=== PATIENT | female | born 1945 | race Caucasian/White ===

== ENCOUNTER 2021-09-22 17:28 | Emergency (ER) | payer MEDICARE, MEDICAID ==
[~2021-09-22] VITALS: Ht 167.6 cm; Wt 76.4 kg
[2021-09-22 17:48] VITALS: BP 181/63
== END 2021-09-22 19:12 | disposition home or self-care (01) ==
LOC: ER 17:28
DX: M25.522 Pain in left elbow (principal); Z53.21 Procedure and treatment not carried out due to patient leaving prior to being seen by health care provider

== ENCOUNTER 2022-07-10 11:50 | Day surgery (SDC) | payer MEDICARE, MEDICAID ==
[~2022-07-10] VITALS: Ht 167.6 cm; Wt 82.6 kg
[2022-07-10] MEDS ORDERED: WARF2.5T82 (12:25)
[2022-07-10] MEDS ORDERED: HYDR-3964 PO (12:25)
[2022-07-10] MEDS ORDERED: AMIO200T61 PO (12:25)
[2022-07-10] MEDS ORDERED: AMLO10TA13 PO (12:25)
[2022-07-10] MEDS ORDERED: LANTUS SQ (12:25)
[2022-07-10] MEDS ORDERED: WARFARIN 3.5 MG (12:25)
[2022-07-10] MEDS ORDERED: INSU100I45 (12:25)
[2022-07-10] MEDS ORDERED: EZET10TA48 PO (12:25)
[2022-07-10] MEDS ORDERED: CARV3.1244 PO (12:25)
[2022-07-10] MEDS ORDERED: PROG100C11 PO (12:25)
[2022-07-10 12:30] VITALS: BP 186/73
[2022-07-10] MEDS ORDERED: ceFAZolin inj. 2,000 MG in dextrose 5%-water 100 ML IV ONE (12:50)
[2022-07-10] MEDS ORDERED: LIDOcaine 1% (10mg/ml)w/preservative inj. 20ml MDV ONE (13:03)
[2022-07-10] MEDS ORDERED: heparin 1,000unit/ml 10ml vial 10 ML ONE (13:21)
[2022-07-10] MEDS ORDERED: midazolam 1 mg/ML 2ml injection ONE (13:21)
[2022-07-10] MEDS ORDERED: fentaNYL/PF 50MCG/1 ML 2ML syringe ONE (13:21)
[2022-07-10] MEDS ORDERED: ceFAZolin/D5W- 1GM premix 50 ML IV ONE (13:30)
[2022-07-10] MEDS ORDERED: LIDOcaine 1% W/epiNEPHrine 1:100,000 20ml vial ONE (13:32)
[2022-07-10] MEDS ORDERED: iohexol 300 MG/1 ML 50ml polymer ONE (13:49)
[2022-07-10 14:20] VITALS: BP 192/72
[2022-07-10 14:30] VITALS: BP 162/69
[2022-07-10 14:46] VITALS: BP 184/75
[2022-07-10 14:54] VITALS: BP 175/90
== END 2022-07-10 15:05 | disposition home or self-care (01) ==
LOC: SSTAY O 11:50
PROVIDERS: ATTEND Radiology Vascular & Interventional Radiology
DX: T82.42XA Displacement of vascular dialysis catheter, initial encounter (principal); I87.1 Compression of vein; E11.22 Type 2 diabetes mellitus with diabetic chronic kidney disease; I12.0 Hypertensive chronic kidney disease with stage 5 chronic kidney disease or end stage renal disease; N18.6 End stage renal disease; Z86.73 Personal history of transient ischemic attack (TIA), and cerebral infarction without residual deficits; Z79.899 Other long term (current) drug therapy; Z79.4 Long term (current) use of insulin; Z79.01 Long term (current) use of anticoagulants; Y83.8 Other surgical procedures as the cause of abnormal reaction of the patient, or of later complication, without mention of misadventure at the time of the procedure; Y92.89 Other specified places as the place of occurrence of the external cause
CPT/HCPCS: 36415; 36558; 37248; 75827; 76937; 77001; 82948; 85610; 99152; 99153; C1750; C1769; J1644; J2250; J3010; J3490; J7030; Q9967; A4620; A9270; C1725; C1894

== ENCOUNTER 2024-11-13 06:34 | Day surgery (SDC) | payer MEDICARE, MEDICAID ==
[~2024-11-13] VITALS: Ht 167.6 cm; Wt 79.7 kg
[2024-11-13] VITALS (8 sets, daily range): BP systolic 132–165; BP diastolic 56–77; PULSE 64–122; RESP 15–26; TEMP 97.4; O2SAT 95–98
[~2024-11-13 06:34] MED LIST: AMIO200T76 PO; AMLO10TA13 PO; CARV3.1244 PO; EZET10TA48 PO; HYDR-3964 PO; INSU100I61; LANTUS SQ; PROG100C11 PO; WARF2.5T82; WARFARIN 3.5 MG
--- NOTE | 2024-11-13 07:08 | ELECTROCARDIOGRAPH REPORT ---
[facility] Test Date: 2024-11-13 Test Time: 07:04:52 Pat Name: LACHELLE WINKLER Department: SHORT STAY 1ST FLOOR Room: Gender: F [employer] Manager: CECY : 1945 Requested By: NIKKO MENDOZA Order Number: [id number] Reading MD: Dr. LIANA Aquino Measurements Intervals [place] Rate: 62 P: 37 ID: [id number] QRS: 42 QRSD: 103 T: 39 QT: 456 QTc: 463 Interpretive Statements Sinus rhythm Atrial premature complex Abnormal R-wave progression, early transition Minimal ST depression, anterolateral leads Electronically Signed On 11-14-2024 19:11:[address] LIANA Aquino Please click the below link to view image of tracing.
[2024-11-13] MEDS ORDERED: LISI20TA28 PO (07:20)
[2024-11-13] MEDS ORDERED: ESTR0.5T28 PO (07:24)
[2024-11-13] MEDS ORDERED: CLON0.1T2 PO (07:24)
[2024-11-13] MEDS ORDERED: ceFAZolin 2,000MG in D5W 50mL IV ONE (07:30)
[2024-11-13 07:43] LABS: MEAN PLATELET VOLUME 8.7 FL (7.4-10.4); RED CELL DISTRIBUTION WIDTH 14.6 % (11.5-14.5)
[2024-11-13 07:48] LABS: CREATININE 3.81 MG/DL (0.40-0.90); TOTAL CARBON DIOXIDE 27.8 MMOL/L (24-32); eCRCL 12 ML/MIN; eGFR 11 ML/MIN
[2024-11-13] MEDS: VANCOMYCIN/WATER FOR INJ (PEG) 1.5GM/300 ML IVPB IV ONE (07:48)
[2024-11-13] MEDS: normal saline 1000ml 1,000 ML IV PRN (07:51)
[2024-11-13 07:52] LABS: APTT 36 SECONDS (22-32); INR 1.6 INR
[2024-11-13] MEDS ORDERED: fentaNYL/PF 50MCG/1 ML 2ML syringe ONE (08:58)
[2024-11-13] MEDS ORDERED: iohexol 350 MG/ML 50ML vial IV ONE (08:58)
[2024-11-13] MEDS ORDERED: LIDOcaine 1% W/epiNEPHrine 1:100,000 20ml vial ONE (08:58)
[2024-11-13] MEDS ORDERED: vancomycin 1,000mg inj ONE (08:58)
[2024-11-13] MEDS ORDERED: midazolam 1 mg/ML 2ml injection ONE (08:58)
--- NOTE | 2024-11-13 11:25 | CARDIOLOGY REPORT ---
DATE OF SERVICE: 11/13/2024 DICTATING PHYSICIAN: NIKKO MENDOZA DO CARDIAC CATHETERIZATION REPORT AND OPERATIVE REPORT REFERRING PHYSICIAN: Jami Gan MD PROCEDURES PERFORMED: * Implantation of permanent dual chamber pacemaker with endocardial electrodes. * 45 minutes conscious sedation and supervision. PREOPERATIVE DIAGNOSIS: Sick sinus syndrome. POSTOPERATIVE DIAGNOSIS: Sick sinus syndrome. CLINICAL HISTORY: This 79-year-old woman has episodes of bradycardia including episodes of sinus arrest of up to 4.5 seconds. There is a history of dizziness and occasional syncope. ANESTHESIA: Conscious sedation with local to skin. DEVICES IMPLANTED: Biotronik RV electrode, model number [id number] and serial number [id number]; Biotronik atrial electrode, model number [id number] and serial number [id number]; Biotronik pulse generator, model number [id number] and serial number [id number]. DESCRIPTION OF THE PROCEDURE: The patient was sedated with fentanyl and Versed. She was then prepared and draped in the usual manner. The left pectoral region was liberally infiltrated with 1% lidocaine containing a 1:100,000 mixture of epinephrine. Using a micropuncture set and a Seldinger technique, a small guidewire was placed in the left subclavian vein. A 5 cm incision was then made directly above the guidewire and a subcutaneous pocket was created with electrocautery. The guidewire was pulled into the pocket and using the micropuncture size-up sheath, a 0.035 guidewire and a 6-Niuean sheath assembly were placed in the central venous circulation. Using this sheath, the right ventricular electrode was prolapsed across the tricuspid valve and ultimately placed on the high interventricular septum. In this location, the impedance was 762 ohms, R-wave amplitude 11.1 mV, and capture threshold 0.8 mV. A second 6-Niuean sheath assembly was also placed in the left subclavian vein. Using this sheath, the right atrial electrode was passed into the mid right atrium and ultimately placed in the right atrial appendage. The screw was extended. The stylet was withdrawn. The impedance was 488 ohms. A P-wave was sensed at 1.9 mV. The patient at that time was in atrial fibrillation. The sheaths were removed while ensuring stability of the electrodes and fluoroscopic observation. A 3-0 Vicryl suture was placed around the electrodes at their exit point from the pectoral fascia. The electrodes were then secured to the pectoral fascia using 0 Ethibond sutures around the suturing sleeves. Next, the generator was attached to the electrodes and together they were placed in the pocket. The generator was suspended with an 0 Ethibond suture. The pocket was irrigated with a vancomycin antibiotic solution. The subcutaneous layer was closed with 3-0 Vicryl and the skin was approximated with 4-0 Monocryl. Initial Mike parameters were amplitudes of 3.5 volts and pulse width of 0.4 milliseconds, mode DDD/DELANEY, lower rate limit 60 ppm, upper rate limit 130 ppm. A chest x-ray was pending at the time of this dictation. NIKKO MENDOZA DO TID: [id number] RECEIPT: [id number] /[facility] [place]
[2024-11-13] MEDS ORDERED: HYDROcodone/acetaminophen 10/325mg tab PO PRN (11:40)
[2024-11-13] MEDS ORDERED: HYDROcodone/acetaminophen 5mg/325mg tablet PO PRN (11:40)
[2024-11-13] MEDS ORDERED: normal saline 1000ml 1,000 ML IV SCH (11:45)
--- NOTE | 2024-11-13 12:11 | RADIOLOGY REPORT ---
CHEST RADIOGRAPH Indication: s/p pacemaker Technique: Single frontal view of the chest was obtained COMPARISON: DI CHEST,SINGLE VIEW on DOS: 08/29/24 FINDINGS: Lines and Tubes: Tunneled right central venous catheter in satisfactory position. Left chest wall pacemaker. Lungs: Clear Pleura: No effusion. No pneumothorax. Cardiomediastinal contours: Unremarkable Bones: Unremarkable IMPRESSION: No acute disease.
== END 2024-11-13 12:55 | disposition home or self-care (01) ==
LOC: SSTAY O 06:34
PROVIDERS: ATTEND Internal Medicine Cardiovascular Disease
DX: I49.5 Sick sinus syndrome (principal); I49.1 Atrial premature depolarization; I48.0 Paroxysmal atrial fibrillation; I25.118 Atherosclerotic heart disease of native coronary artery with other forms of angina pectoris; E11.42 Type 2 diabetes mellitus with diabetic polyneuropathy; I10 Essential (primary) hypertension; E78.5 Hyperlipidemia, unspecified; M06.9 Rheumatoid arthritis, unspecified; Z86.73 Personal history of transient ischemic attack (TIA), and cerebral infarction without residual deficits; Z79.890 Hormone replacement therapy; Z79.899 Other long term (current) drug therapy; Z90.49 Acquired absence of other specified parts of digestive tract; Z90.89 Acquired absence of other organs; Z95.5 Presence of coronary angioplasty implant and graft; Z98.890 Other specified postprocedural states
CPT/HCPCS: 33208; 36415; 71045; 80048; 82948; 83735; 85025; 85610; 85730; 93005; 99152; 99153; A4565; C1785; C1898; J2250; J3010; J3373; J3375; J3490; J7030; Q9967